=== PATIENT | female | born 1965 | race Caucasian/White ===

== ENCOUNTER 2021-04-11 07:00 | Inpatient (IN) | payer BC, OTHER ==
[~2021-04-11] VITALS: Ht 160 cm; Wt 72.6 kg
[2021-04-11] VITALS (18 sets, daily range): BP systolic 131–166; BP diastolic 69–89
[2021-04-11 07:36] LABS: BASOPHILS % 0.5 % (0.0-1.0); EOSINOPHILS # (AUTO) 0.1 (0.0-0.4); EOSINOPHILS % 1.2 % (0.0-6.0); HEMOGLOBIN 15.5 g/dL (12.0-16.0); LYMPHOCYTES # (AUTO) 1.7 (1.0-3.2); LYMPHOCYTES % 19.6 % (18.0-39.1); MEAN CORPUSCULAR HEMOGLOBIN 30.2 pg (28-32); MEAN CORPUSCULAR HGB CONC 32.3 g/dL (31-35); MEAN CORPUSCULAR VOLUME 93.6 fL (81-99); MONOCYTES # (AUTO) 0.7 (0.2-0.8); MONOCYTES % 8.1 % (4.4-11.3); NEUTROPHILS # (AUTO) 6.2 (2.1-6.9); NEUTROPHILS % 70.3 % (38.7-80.0); PLATELET COUNT 330 x10e3/uL (140-360); RED BLOOD COUNT 5.13 x10e6/uL (3.6-5.1); RED CELL DISTRIBUTION WIDTH 13.2 % (11.7-14.4)
[2021-04-11] MEDS ORDERED: ASPIRIN 81 MG CHEW TAB PO ONE (07:45)
[2021-04-11 07:54] LABS: ALBUMIN 4.3 g/dL (3.5-5.0); ALBUMIN/GLOBULIN RATIO 1.2 (0.8-2.0); ANION GAP 12.9 mmol/L (8-16); CALCIUM 9.5 mg/dL (8.4-10.2); CREATININE, SERUM 0.78 mg/dL (0.57-1.11); POTASSIUM 3.9 mmol/L (3.5-5.1)
[2021-04-11] MEDS ORDERED: ONDANSETRON HCL INJ 2MG/ML 2ML 2 MG/ML VIAL IV STA (09:33)
[2021-04-11] MEDS ORDERED: ONDANSETRON HCL INJ 2MG/ML 2ML 2 MG/ML VIAL IV PRN ×3 (10:30→14:30)
[2021-04-11] MEDS ORDERED: MORPHINE SULFATE INJ 4 MG/ML INJ 1ML IV PRN (10:30)
[2021-04-11] MEDS ORDERED: SODIUM CHLORIDE 0.9% 1000ML 1,000 ML IV SCH ×2 (12:00)
[2021-04-11] MEDS ORDERED: FENTANYL CITRATE/PF 100MCG/2 ML INJ ONE (12:02)
[2021-04-11] MEDS ORDERED: MIDAZOLAM HCL 2 MG/2 ML VIAL ONE (12:02)
[2021-04-11] MEDS ORDERED: IOPAMIDOL 370 MG/ML 200 ML INFUS..BTL INJ ONE (12:03)
[2021-04-11] MEDS ORDERED: LIDOCAINE HCL 2% LOCAL 20 ML VIAL ONE (12:03)
[2021-04-11] MEDS ORDERED: SODIUM CHLORIDE 0.9% 1000ML 0 ML ONE (12:03)
[2021-04-11] MEDS ORDERED: SODIUM CHLORIDE 0.9% 1000ML 1,000 ML ONE (12:03)
[2021-04-11] MEDS ORDERED: HEPARIN SOD/SOD CHLORIDE 2,000 ML ONE (12:03)
[2021-04-11] MEDS ORDERED: VERAPAMIL HCL 2.5 MG/ML 2 ML VIAL ONE (12:38)
[2021-04-11] MEDS ORDERED: SODIUM CHLORIDE 0.9% 50ML 50 ML ONE (13:01)
[2021-04-11] MEDS ORDERED: BIVALRIUDIN 250 MG/VIAL VIAL IV ONE (13:01)
[2021-04-11] MEDS ORDERED: ASPIRIN 325 MG TAB ONE (13:06)
[2021-04-11] MEDS ORDERED: PRASUGREL 10 MG TAB ONE (13:06)
[2021-04-11] MEDS ORDERED: ONDANSETRON HCL INJ 2MG/ML 2ML 2 MG/ML VIAL ONE (13:14)
[2021-04-11] MEDS ORDERED: HYDROCODONE/APAP 5MG-325MG TAB PO PRN (13:45)
[2021-04-11] MEDS ORDERED: ACETAMINOPHEN 325 MG TAB PO PRN ×2 (13:45→14:30)
[2021-04-11] MEDS ORDERED: MORPHINE SULFATE INJ 2 MG/ML SYR IV PRN (13:45)
[2021-04-11] MEDS: SODIUM CHLORIDE 0.9% 1000ML 1,000 ML IV SCH ×2 (13:45→23:52)
[2021-04-11] MEDS ORDERED: DOCUSATE SODIUM 100 MG CAP PO PRN (14:30)
[2021-04-11] MEDS ORDERED: DIPHENHYDRAMINE HCL 25 MG CAP PO PRN (14:30)
[2021-04-11] MEDS ORDERED: SIMETHICONE 80 MG CHEW PO PRN (14:30)
[2021-04-11] MEDS ORDERED: HYDRALAZINE HCL 20 MG/ML VIAL IV PRN (14:30)
[2021-04-11] MEDS ORDERED: DEXTROSE 50% SYRINGE 50 ML IV PRN (14:30)
[2021-04-11] MEDS ORDERED: BENZONATATE 100 MG CAP PO PRN (14:30)
[2021-04-11] MEDS ORDERED: POTASSIUM CHLORIDE 20 MEQ TAB CR PO PRN (14:30)
[2021-04-11] MEDS ORDERED: ALBUTEROL/IPRATROPIUM 3 ML NEB NEB PRN (14:30)
[2021-04-11] MEDS ORDERED: LIDOCAINE 4% PATCH TP PRN (14:30)
[2021-04-11] MEDS: METOPROLOL TARTRATE 25 MG TAB PO SCH (17:42)
[2021-04-11 19:24] LABS: CREATINE KINASE MB 59.7 ng/mL (0-5.0)
[2021-04-11] MEDS: ATORVASTATIN 40 MG TAB PO SCH (20:01)
[2021-04-11] MEDS ORDERED: MELATONIN 5 MG TABLET PO PRN (21:00)
[2021-04-12] VITALS (9 sets, daily range): BP systolic 117–158; BP diastolic 20–97
[2021-04-12] MEDS: SODIUM CHLORIDE 0.9% 1000ML 1,000 ML IV SCH (03:05)
[2021-04-12 06:46] LABS: BASOPHILS % 0.3 % (0.0-1.0); EOSINOPHILS # (AUTO) 0.1 (0.0-0.4); EOSINOPHILS % 1.7 % (0.0-6.0); HEMOGLOBIN 13.1 g/dL (12.0-16.0); LYMPHOCYTES # (AUTO) 1.7 (1.0-3.2); LYMPHOCYTES % 21.9 % (18.0-39.1); MEAN CORPUSCULAR VOLUME 93.8 fL (81-99); MONOCYTES # (AUTO) 0.7 (0.2-0.8); MONOCYTES % 8.9 % (4.4-11.3); NEUTROPHILS # (AUTO) 5.2 (2.1-6.9); NEUTROPHILS % 66.7 % (38.7-80.0); PLATELET COUNT 283 x10e3/uL (140-360); RED BLOOD COUNT 4.37 x10e6/uL (3.6-5.1); RED CELL DISTRIBUTION WIDTH 13.1 % (11.7-14.4)
[2021-04-12 07:16] LABS: ANION GAP 11.2 mmol/L (8-16); CALCIUM 8.5 mg/dL (8.4-10.2); CREATININE, SERUM 0.8 mg/dL (0.57-1.11); POTASSIUM 4.2 mmol/L (3.5-5.1)
[2021-04-12 07:19] LABS: CHOL/HDL RATIO 4.1 (3.0-3.6); MAGNESIUM 1.8 MG/DL (1.3-2.1); PHOSPHORUS 3.3 MG/DL (2.3-4.7)
[2021-04-12 07:41] LABS: THYROID STIMULATING HORMONE 2.822 uIU/mL (0.350-4.940)
[2021-04-12] MEDS: ASPIRIN 81 MG ENTERIC COATED PO SCH (08:39)
[2021-04-12] MEDS: PRASUGREL 10 MG TAB PO SCH (08:39)
[2021-04-12] MEDS: METOPROLOL TARTRATE 25 MG TAB PO SCH ×2 (08:39→16:10)
[2021-04-12] MEDS: PANTOPRAZOLE SOD 40 MG TABEC PO SCH (08:39)
[2021-04-12] MEDS ORDERED: EFFIENT10 MG PO (11:47)
[2021-04-12] MEDS ORDERED: ATORVASTATIN CA20 MG PO (11:47)
[2021-04-12] MEDS ORDERED: METOPROLOL SUCC25 MG PO (11:48)
[2021-04-12] MEDS ORDERED: ASPIRIN81 MG PO (11:53)
[2021-04-12] MEDS: ATORVASTATIN 40 MG TAB PO SCH (20:18)
[2021-04-13] VITALS: BP 115/60
[2021-04-13 04:00] VITALS: BP 137/79
[2021-04-13 08:36] VITALS: BP 136/74
[2021-04-13 08:47] VITALS: BP 136/74
[2021-04-13] MEDS: METOPROLOL TARTRATE 25 MG TAB PO SCH (09:00)
[2021-04-13] MEDS: PRASUGREL 10 MG TAB PO SCH (09:06)
[2021-04-13] MEDS: PANTOPRAZOLE SOD 40 MG TABEC PO SCH (09:06)
[2021-04-13] MEDS: ASPIRIN 81 MG ENTERIC COATED PO SCH (09:06)
[2021-04-13 12:56] VITALS: BP 125/65
[2021-04-13] MEDS ORDERED: METOPROLOL TART25 MG PO (14:32)
== END 2021-04-13 14:49 | disposition home or self-care (01) | DRG 247 ==
LOC: ER 07:05 → ERHOLD 10:19 → OBSVTOIN 13:32 → MED/SURG3 17:19
PROVIDERS: ADMIT Internal Medicine; ATTEND Internal Medicine
PROC: 027034Z Dilation of Coronary Artery, One Artery with Drug-eluting Intraluminal Device, Percutaneous Approach (ICD-10-PCS; principal; 2021-04-11)
PROC: 4A023N7 Measurement of Cardiac Sampling and Pressure, Left Heart, Percutaneous Approach (ICD-10-PCS; 2021-04-11)
PROC: B2111ZZ Fluoroscopy of Multiple Coronary Arteries using Low Osmolar Contrast (ICD-10-PCS; 2021-04-11)
PROC: B2151ZZ Fluoroscopy of Left Heart using Low Osmolar Contrast (ICD-10-PCS; 2021-04-11)
DX: I21.4 Non-ST elevation (NSTEMI) myocardial infarction (principal); I25.118 Atherosclerotic heart disease of native coronary artery with other forms of angina pectoris; E78.5 Hyperlipidemia, unspecified; E66.3 Overweight; Z68.28 Body mass index [BMI] 28.0-28.9, adult; I10 Essential (primary) hypertension; Z88.0 Allergy status to penicillin; F17.210 Nicotine dependence, cigarettes, uncomplicated; Z83.3 Family history of diabetes mellitus; Z82.49 Family history of ischemic heart disease and other diseases of the circulatory system; R11.2 Nausea with vomiting, unspecified
CPT/HCPCS: 36415; 71045; 80048; 80053; 80061; 82550; 82553; 82948; 83036; 83690; 83735; 84100; 84443; 84484; 85025; 85347; 92928; 93005; 93458; 96361; 99152; 99153; 99284; C1725; C1876; C1887; J0583; J2001; J2250; J2405; J3010; J7030; Q9967; U0002